=== PATIENT | male | born 2000 | race Caucasian/White ===

== ENCOUNTER 2022-12-13 14:41 | Emergency (ER) | payer OTHER ==
[2022-12-13] MEDS ORDERED: Ketorolac Tromethamine 30 MG/ML VIAL ONE (18:14)
[2022-12-13] MEDS ORDERED: Lidocaine 4% Patch ONE (18:14)
== END 2022-12-13 18:35 | disposition home or self-care (01) ==
LOC: MADERS 14:41
DX: M54.50 Low back pain, unspecified (principal)
CPT/HCPCS: 96372; 99283; J1885